=== PATIENT | female | born 1955 | race Two or more races ===

== ENCOUNTER 2018-10-16 08:07 | Day surgery (SDC) | payer OTHER ==
[2018-10-16] MEDS ORDERED: PROTONIX40 MG PO (12:19)
[2018-10-16] MEDS ORDERED: LEVAQUIN500 MG PO (12:19)
[2018-10-16] MEDS ORDERED: ULTRACET PO (12:19)
== END 2018-10-16 16:10 | disposition home or self-care (01) ==
LOC: CIR.AMB 08:07
DX: K80.10 Calculus of gallbladder with chronic cholecystitis without obstruction (principal)